=== PATIENT | female | born 1970 | race Two or more races ===

== ENCOUNTER 2025-10-27 12:05 | Day surgery (SDC) | payer MEDICAID, SELFPAY ==
[2025-10-27] VITALS (12 sets, daily range): BP systolic 106–131; BP diastolic 59–86; PULSE 67–96; RESP 10–20; TEMP 36.6–36.7; O2SAT 96–100; BMI 28.6
[2025-10-27] MEDS: RINGERS LACTATED 1000 ML 1,000 ML 100 ML IV (13:44)
[2025-10-27] MEDS: MIDAZOLAM INJ 1 MG/ML VIAL 2 ML (ASD USE ONLY) 2 MG IVP (13:52)
[2025-10-27] MEDS: fentaNYL CIT INJ 50 mCg/ML AMP 2ML (ASD USE ONLY) IVP (13:55)
== END 2025-10-27 15:00 | disposition home or self-care (01) ==
PROVIDERS: PCP Registered Nurse; Referring Provider Surgery; Visit Provider Surgery
PROC: 0DBE8ZX Excision of Large Intestine, Via Natural or Artificial Opening Endoscopic, Diagnostic (ICD-10-PCS; CPT 45380; principal; 2025-10-27 10:45)
DX: Z12.11 Encounter for screening for malignant neoplasm of colon (principal)
CPT/HCPCS: 45378; A4217; A4649; J2250; J3010; J7120